=== PATIENT | male | born 1960 | race Caucasian/White ===

== ENCOUNTER 2017-12-06 09:50 | Outpatient (CLI) | payer OTHER, BC ==
[2015-12-19 11:03] VITALS: BP 104/71
[2017-12-06 10:36] LABS: eGFR (African) > 60; eGFR (Non-African) > 60
--- NOTE | 2017-12-06 17:53 | Diagnostic Imaging Report ---
YANCI RYAN [facility] [id number] [facility].[address] [id number] Report Submission Date: Dec 06, 2017 12:44:02 PM CDT Patient Study Name: VONDA PUENTES Date: Dec 06, 2017 10:50:15 AM CDT Modality Type: CT\SR Gender: M Description: CTA ABDOMEN/PELVIS W/W : 64 Institution: [facility] Physician: YANCI RYAN Examination: CT Abdomen/pelvis History: HEMATURIA FOUND ON UA UROGRAM PROTOCOL (Hx) Comparison exams: None available Technique: CT Abdomen/pelvis with IV protocol. Findings: Pre, post, and delayed imaging obtained. Precontrast imaging demonstrates a faint 1 mm calyx calcification involving an inferior calyx of the left kidney. No other suspicious calcifications. Immediate and delayed imaging do not demonstrate suspicious cortical enhancement. Few cortical and exophytic cysts. Ureters are nondilated in their course through the abdomen and pelvis. No central calcification. No bladder mucosal irregularity on images provided - delayed imaging did not imaged through the bladder limiting evaluation. Liver, spleen, adrenals, pancreas, and gallbladder are without gross irregularity. No abnormal enhancement. Abdominal aorta without evidence for aneurysm. Mild peripheral atherosclerotic disease. Cardiac silhouette is not enlarged. No pericardial effusion. Bowel unopacified limiting evaluation. No abnormal dilation. Lower abdominal/ rectal surgical changes - patient with history of colectomy. Stool within the remaining large bowel limiting sensitivity. No mesenteric inflammatory changes or free fluid. Osseous structures demonstrate degenerative changes. Lung bases without infiltrate. No effusion. Impression: No renal mass or inflammatory process. 1 mm left nephrolithiasis. No ureteric abnormality. No acute upper abdominal organ inflammatory process. Prior bowel surgical changes. No abnormal dilation/obstruction. No lung base consolidation or effusion. Electronically signed on Dec 06, 2017 12:44:02 PM CDT by: Vicente Barcenas Further imaging obtained with delayed imaging through the bladder. Prostate impression upon the posterior arch of the bladder. Suggestion for some dimpling in the region of the right ureterovesicular junction - recommend direct visualization to exclude possible lesion. Addendum electronically signed by Vicente Barcenas on December 06, 2017 1:26:56 PM CDT MTDD
== END 2017-12-06 09:52 ==
LOC: RAD 09:50
PROVIDERS: ATTEND Urology
DX: R31.29 Other microscopic hematuria (principal)
CPT/HCPCS: 74170; 82565; 84520; Q9967